=== PATIENT | male | born 1980 | race African-American/Black ===

== ENCOUNTER 2020-06-10 11:56 | Emergency (ER) | payer BC, SELFPAY ==
--- NOTE | ~2020-06-10 | CT_ITS ---
EXAMINATION: CT abdomen pelvis wo con EXAM DATE: 06/10/2020 13:07 INDICATION: Right flank pain. TECHNIQUE: Spiral CT of the abdomen and pelvis was performed without contrast. Axial, coronal and sag ittal images were reviewed. The dose-length product (DLP) for this examination was 1256.65 mGy-cm. The exposure was tailored according to patient size (auto mA exposure control), and iterative reconst ruction (ASIR) was used as additional dose reduction technique. There is no prior study for comparis on. FINDINGS: There is no nephrolithiasis or hydronephrosis. The prostate is unremarkable. The bladder is unremarkable. The liver, spleen, adrenal glands and pancreas are unremarkable. Gallbladder is u nremarkable. No biliary obstruction. There is no retroperitoneal or pelvic lymphadenopathy. Small u mbilical fat-containing hernia. The appendix is normal. The stomach and small bowel are unremarkable. There is expected amount of c olonic stool. No free intraperitoneal gas. The heart is normal in size. There are no pericardial or pleural effusions. The lung bases are unremarkable. The bones are unremarkable. IMPRESSION: 1. No nephrolithiasis, hydronephrosis or acute intra-abdominal findings. Reviewed, dictated and finalized at location A.
--- NOTE | ~2020-06-10 | XR_ITS ---
EXAMINATION: XR abdomen/kub 1V EXAM DATE: 06/10/2020 13:10 INDICATION: Right flank pain. TECHNIQUE: Frontal projection(s) of the abdomen for interpretation. There is no prior study for sujatha angeles. FINDINGS: There is expected amount of colonic stool and gas. No small bowel dilation, nonobstructiv e bowel gas pattern. There are no suspicious calcifications identified. There is no organomegaly suspected. The bones are unremarkable. IMPRESSION: Unremarkable abdomen x-ray exam. Reviewed, dictated and finalized at location A.
[2020-06-10 12:05] VITALS: BP 169/81; PULSE 96; RESP 20; TEMP 36.8; O2SAT 99
[2020-06-10 12:46] LABS: Basophils Percent Auto 0.6 % (0.2-1.2); Eosinophils Percent Auto 0.6 % (0-4.4); Hematocrit 44.2 % (42.0-52.0); Hemoglobin 13.9 g/dL (14.0-18.0); Immature Granulocyte Absolute 0.02 K/mm3 (0.00-0.031); Immature Granulocyte Percent A 0.3 % (0-0.5); Lymphocytes Absolute Auto 2.58 K/mm3 (0.9-3.2); Mean Corpuscular HGB Conc 31.4 g/dl (32-36); Mean Corpuscular Hemoglobin 23.4 pg (26-34); Mean Corpuscular Volume 74.3 fl (80-100); Mean Platelet Volume 9.2 fl (7.4-10.4); Monocytes Absolute Auto 0.4 K/mm3 (0.1-0.6); Monocytes Percent Auto 6.5 % (2.6-8.5); Neutrophils Absolute Auto 3.4 K/mm3 (1.3-6.7); Platelet Count Result 282 k/mm3 (150-375); Red Blood Count 5.95 M/mm3 (4.6-6.20); Red Cell Distribution Width 15.5 % (11.5-14.5); White Blood Count 6.5 K/mm3 (4.5-10.0)
--- NOTE | 2020-06-10 12:54 | ED.BACK ---
HPI - Back Pain/Injury General Chief Complaint: Back Pain/Injury <Sea Vital PA-C - Last Filed: 06/10/20 13:42> Stated Complaint: right flank pain <Sea Vital PA-C - Last Filed: 06/10/20 13:42> Time Seen by Provider: 06/10/20 12:03 <Sea Vital PA-C - Last Filed: 06/10/20 13:42> Source: patient <Sea Vital PA-C - Last Filed: 06/10/20 13:42> Mode of arrival: ambulatory <Sea Vital PA-C - Last Filed: 06/10/20 13:42> Limitations: no limitations <LYNNETTE Wen Last Filed: 06/10/20 13:42> History of Present Illness HPI Narrative: Patient is a 40-year-old male who presents to emergency department for evaluation of right flank pain for the last 2 days noting stabbing intermittent pain that intensified today patient denies similar occurrence in the past has not taken anything for his symptoms has not been seen for this complaint presents per private vehicle in no distress denies any fever chills nausea vomiting or URI symptoms <Sea Vital PA-C - Last Filed: 06/10/20 13:42> Related Data Allergies/Adverse Reactions: Allergies Allergy/AdvReac Type Severity Reaction Status Date / Time No Known Allergies Allergy Verified 06/10/20 12:07 <Sea Vital PA-C - Last Filed: 06/10/20 13:42> Review of Systems Review of Systems: All systems reviewed & are unremarkable except as noted in HPI and below <Sea Vital PA-C - Last Filed: 06/10/20 13:42> [facility] Social History Social History: Social History (Updated 06/10/20 @ 12:55 by Sea Vital PA-C) Smoking status: Never smoker <LYNNETTE Wen Last Filed: 06/10/20 13:42> Exam Narrative: Exam Narrative: GENERAL: Well-appearing, well-nourished, and in no acute distress. HEAD: Normocephalic, atraumatic. EYES: PERRLA and EOMI. ENT: Nares clear, no rhinorrhea or epistaxis. Mucous membranes moist. CHEST: Clear to auscultation. No respiratory distress. No wheezes rales or rhonchi HEART: Regular rate and rhythm. No murmur heard. Normal peripheral pulses. ABDOMEN: Soft, right flank tenderness and right upper quadrant tenderness no deformities noted, nondistended, normal active bowel sounds. EXTREMITIES: Normal range of motion. No edema. SKIN: Warm, dry, no rash. NEURO: No focal deficits. Alert and oriented x3. Cranial nerves II through XII grossly intact PSYCH: Normal mood and affect. <LYNNETTE Wen Last Filed: 06/10/20 13:42> Course Course Emergency Course: Patient in the room at this time aware of case findings treatment plan and diagnosis agreeing to follow-up as directed or to return if symptoms worsen or concerns patient with flank pain of unknown etiology no high risk changes in the blood work or imaging will be discharged home for further evaluation on outpatient basis provided with primary care follow-up <Sea Vital PA-C - Last Filed: 06/10/20 13:42> Vital Signs Vital signs: Vital Signs Temperature 98.3 F 06/10/20 12:05 Pulse Rate 96 06/10/20 12:05 Respiratory Rate 20 06/10/20 12:05 Blood Pressure 169/81 H 06/10/20 12:05 Pulse Oximetry 99 06/10/20 12:05 Temperature 98.3 F 06/10/20 12:05 Pulse Rate 96 06/10/20 12:05 Respiratory Rate 20 06/10/20 12:05 Blood Pressure 169/81 H 06/10/20 12:05 Pulse Oximetry 99 06/10/20 12:05 <LYNNETTE Wen Last Filed: 06/10/20 13:42> Vital Signs Temperature 98.3 F 06/10/20 12:05 Pulse Rate 96 06/10/20 12:05 Respiratory Rate 20 06/10/20 12:05 Blood Pressure 169/81 H 06/10/20 12:05 Pulse Oximetry 99 06/10/20 12:05 Temperature 98.3 F 06/10/20 12:05 Pulse Rate 96 06/10/20 12:05 Respiratory Rate 20 06/10/20 12:05 Blood Pressure 169/81 H 06/10/20 12:05 Pulse Oximetry 99 06/10/20 12:05 <Cassi Piedra MD - Last Filed: 06/10/20 14:13> MDM - Back Pain/Injury MDM Narrative Medical decision making narr
[2020-06-10 12:57] LABS: Add Urine Microscopic? NO; Appearance Urine Clear (Clear); Bilirubin Urine Negative (Negative); Blood Urine Negative (Negative); Color Urine Yellow (Yellow); Glucose Urine UA Negative (Negative); Ketones Urine Negative (Negative); Leukocyte Esterase Ur Negative LEU/UL (Negative); Nitrate Urine Negative (Negative); Protein Urine Negative (Negative); Specific Grav Ur 1.026 (1.001-1.035); Urobilinogen Urine Negative mg/dL (<2.0)
[2020-06-10 12:58] LABS: Anion Gap 12.8 mmol/L (7-16); Blood Urea Nitrogen 19 mg/dL (9-20); Calcium 8.6 mg/dL (8.4-10.2); Carbon Dioxide 24 mmol/L (22-30); Chloride 105 mmol/L (98-107); Estimated CRCL calculation 105 ml/min; Estimated Glomerular Filt Rate > 60; Glucose 117 mg/dL (75-110); Potassium 3.8 mmol/L (3.4-5.0); Sodium 138 mmol/L (137-145)
[2020-06-10] MEDS: FAMOTIDINE 20 MG/2 ML VIAL IV PUSH (13:15)
[2020-06-10] MEDS: SODIUM CHLORIDE 0.9% IV 1,000 ML 999 ML IV CONT (13:15)
[2020-06-10 13:18] LABS: Alanine Aminotransferase 44 U/L (4-50); Albumin Level 4.5 g/dL (3.5-5.1); Alkaline Phosphatase 76 U/L (38-126); Aspartate Amino Transferase 41 U/L (17-59); Bilirubin,Total 0.5 mg/dL (0.2-1.3); Lipase 172 U/L (23-300)
[2020-06-10 14:10] VITALS: BP 158/68; PULSE 72; RESP 12; O2SAT 99
== END 2020-06-10 14:20 | disposition home or self-care (01) ==
PROVIDERS: Emergency Medicine Emergency Medical Services; Emergency Provider Emergency Medicine
DX: R10.9 Unspecified abdominal pain (principal)
CPT/HCPCS: 36415; 74018; 74176; 80048; 80076; 81003; 83690; 85025; 96361; 96374; 96375; 99284; J0131; J7030

== ENCOUNTER 2023-04-22 18:04 | Emergency (ER) | payer BC, SELFPAY ==
--- NOTE | ~2023-04-22 | XR_ITS ---
Clinical Indication: Chest pain PA and lateral views of the chest: Comparison: None Findings: The lungs are clear, without evidence of focal consolidation or pleural effusion. Cardiome diastinal silhouette is within normal limits. Bones and soft tissues are unremarkable. Impression: Normal chest. Reviewed, dictated and finalized at location . Impression: Normal chest.
--- NOTE | 2023-04-22 18:11 | ECG_ITS ---
Measurements Intervals [place] Rate: 105 P: 40 WV: 143 QRS: 46 QRSD: 93 T: 17 QT: 328 QTc: 434 Interpretive Statements SINUS TACHYCARDIA NONSPECIFIC T-WAVE ABNORMALITY ABNORMAL ECG NO PREVIOUS ECG AVAILABLE FOR COMPARISON Electronically Signed On 04-23-2023 10:19:11 CDT by Emery Queen M.D.
[2023-04-22 18:12] VITALS: BP 177/88; PULSE 118; RESP 24; TEMP 37; O2SAT 99
[2023-04-22 18:14] VITALS: PULSE 118; RESP 23; O2SAT 100
[2023-04-22 18:15] VITALS: PULSE 106; RESP 21; O2SAT 100
[2023-04-22 18:16] VITALS: PULSE 116; O2SAT 100
[2023-04-22] MEDS: ASPIRIN 81 MG CHEWABLE TABLET 324 MG PO (18:27)
[2023-04-22 18:29] LABS: Basophils Absolute Auto 0.1 K/mm3 (0.0-0.1); Basophils Percent Auto 0.8 % (0.2-1.2); Eosinophils Absolute Auto 0.3 K/mm3 (0-0.3); Eosinophils Percent Auto 2.5 % (0-4.4); Hematocrit 42.9 % (42.0-52.0); Hemoglobin 13.4 g/dL (14.0-18.0); Immature Granulocyte Absolute 0.08 K/mm3 (0.00-0.031); Immature Granulocyte Percent A 0.8 % (0-0.5); Lymphocytes Percent Auto 42.2 % (18.3-44.2); Mean Corpuscular HGB Conc 31.2 g/dl (32-36); Mean Corpuscular Hemoglobin 23.5 pg (26-34); Mean Corpuscular Volume 75.1 fl (80-100); Mean Platelet Volume 8.9 fl (7.4-10.4); Monocytes Absolute Auto 0.8 K/mm3 (0.1-0.6); Monocytes Percent Auto 7.8 % (2.6-8.5); Neutrophils Absolute Auto 4.6 K/mm3 (1.3-6.7); Neutrophils Percent Auto 45.9 % (45.5-73.1); Platelet Count Result 287 k/mm3 (150-375); Red Blood Count 5.71 M/mm3 (4.6-6.20); Red Cell Distribution Width 15.9 % (11.5-14.5)
--- NOTE | 2023-04-22 18:32 | ED.CHESTPAIN ---
HPI - Chest Pain General Chief Complaint: Chest Pain Stated Complaint: L sided chest pain to arm Time Seen by Provider: 04/22/23 18:19 History of Present Illness HPI narrative: Patient is a 43-year-old male with a history of hypertension presenting with chest pain. Patient states that he was driving when he developed pain under his left armpit radiating down his left arm. States that he felt short of breath. States that the episode lasted for 30 seconds to a minute and then resolved. States that he has had similar pain in the past but usually not so severe. Currently, he denies any complaints or symptoms. He denies lightheadedness or palpitations. No headaches, fevers, abdominal pain, nausea or vomiting, diarrhea, dysuria, leg swelling. Related Data Allergies Allergy/AdvReac Type Severity Reaction Status Date / Time No Known Allergies Allergy Verified 06/10/20 12:07 Review of Systems Review of Systems: All systems reviewed & are unremarkable except as noted in HPI and below PMFSH Social History Social History Smoking status: Never smoker Exam Narrative: GENERAL: Well-appearing, well-nourished, and in no acute distress. Pleasant and cooperative HEAD: Normocephalic, atraumatic. EYES: PERRLA and EOMI. ENT: Nares clear, no rhinorrhea or epistaxis. Mucous membranes moist. NECK: Supple. CHEST: Clear to auscultation. No respiratory distress. HEART: Regular rate and rhythm. No murmur heard. Normal peripheral pulses. ABDOMEN: Soft, nontender, nondistended EXTREMITIES: Normal range of motion. No edema. SKIN: Warm, dry, no rash. NEURO: No focal deficits. Alert and oriented x3. PSYCH: Normal mood and affect. Course Vital Signs Vital signs: Vital Signs Temperature 98.6 F 04/22/23 18:12 Pulse Rate 118 H 04/22/23 18:12 Respiratory Rate 24 H 04/22/23 18:12 Blood Pressure 177/88 H 04/22/23 18:12 Pulse Oximetry 99 04/22/23 18:12 Oxygen Delivery Room Air 04/22/23 18:12 Temperature 98.6 F 04/22/23 18:12 Pulse Rate 89 04/22/23 19:02 Respiratory Rate 18 04/22/23 19:02 Blood Pressure 137/97 H 04/22/23 19:02 Pulse Oximetry 100 04/22/23 19:02 Oxygen Delivery Room Air 04/22/23 18:16 MDM - Chest Pain MDM Narrative Medical decision making narrative: Patient is a 43-year-old male presenting with an episode of chest pain and shortness of breath. On arrival, patient was hypertensive in the 170s over 80s. He was tachycardic as well. His vitals improved by the time I evaluated him. He is no longer tachycardic and his blood pressure is much improved in the 130s over 90s. EKG per my interpretation shows sinus tachycardia, normal axis, nonspecific T wave changes, no ST elevations or depressions. Chest x-ray shows no acute abnormalities. Blood work is unremarkable. Troponins are undetectable x2. Patient denies any recurrence of his chest pain. On my evaluation, the patient states that he feels well. Discussed the reassuring work-up. Advised that he follow-up closely with his PCP. Appropriate return precautions given. Patient voiced understanding and is agreeable with plan. Discharged in stable condition. Differential Diagnosis Differential diagnosis: Likely pneumothorax, atypical chest pain, st elevation myocardial infarction, costochondritis and chest pain Medical Records Data Attestation: I reviewed the patient's medical records. Lab Data Attestation: I reviewed the patient's lab results. 04/22/23 18:24 04/22/23 18:24 Labs: Lab Results 04/22/23 04/22/23 Range/Units 18:24 21:10 WBC 10.0 (4.5-10.0) K/mm3 RBC 5.71 (4.6-6.20) M/mm3 Hgb 13.4 L (14.0-18.0) g/dL Hct 42.9 (42.0-52.0) % MCV 75.1 L (80-100) fl MCH 23.5 L (26-34) pg MCHC 31.2 L (32-36) g/dl RDW 15.9 H (11.5-14.5) % Plt Count 287 (150-375) k/mm3 MPV 8.9 (7.4-10.4) fl Immature Gran % (
[2023-04-22 18:45] LABS: INR 0.9; Prothrombin Time 13.1 Seconds (11.1-14.7)
[2023-04-22 18:46] LABS: Alanine Aminotransferase 42 U/L (6-50); Albumin Level 5.1 g/dL (3.5-5.1); Alkaline Phosphatase 59 U/L (38-126); Anion Gap 9 mmol/L (8-16); Aspartate Amino Transferase 38 U/L (17-59); Bilirubin,Total 0.5 mg/dL (0.2-1.3); Blood Urea Nitrogen 22 mg/dL (9-20); Calcium 8.9 mg/dL (8.4-10.2); Carbon Dioxide 28 mmol/L (22-30); Chloride 103 mmol/L (98-107); Estimated CRCL calculation 110 ml/min; Estimated Glomerular Filt Rate > 60; Glucose 104 mg/dL (65-110); Lipase 154 U/L (23-300); Partial Thromboplastin Time 26.2 SECONDS (22.3-36.8); Potassium 3.6 mmol/L (3.4-5.0); Sodium 140 mmol/L (137-145)
[2023-04-22 18:57] LABS: Troponin I < 0.012 ng/mL (0.000-0.034)
[2023-04-22 19:02] VITALS: BP 137/97; PULSE 89; RESP 18; O2SAT 100
--- NOTE | 2023-04-22 19:15 | PC.NURSE ---
This RN assumed care of patient.
[2023-04-22] MEDS: SODIUM CHLORIDE 0.9% IV 1,000 ML 999 ML IV CONT (19:33)
[2023-04-22 21:37] LABS: Troponin I < 0.012 ng/mL (0.000-0.034)
== END 2023-04-22 21:56 | disposition home or self-care (01) ==
PROVIDERS: Emergency Medicine; Emergency Provider Emergency Medicine
DX: R07.89 Other chest pain (principal)
CPT/HCPCS: 36415; 71046; 80053; 83690; 84484; 85025; 85610; 85730; 93005; 96360; 99284; A9270; J7030

== ENCOUNTER 2023-05-17 09:19 | Outpatient (CLI) | payer BC, SELFPAY ==
--- NOTE | ~2023-05-17 | US_ITS ---
Limited Abdominal Sonogram: Real-time sonographic imaging of the right upper quadrant was performed. Clinical History: Elevated liver enzymes Findings: The liver appears mildly heterogeneous, with no evidence of mass lesion or bile duct dilat ation. Main portal vein demonstrates normal direction of flow. The gallbladder is well distended, and appears normal with no evidence of gallstone or wall thickening. The common bile duct measures 6 mm. The pancreas is obscured by bowel gas shadowing. Impression: Possible fatty infiltration of liver or other chronic liver disease. Correlate clinically. Reviewed, dictated and finalized at location M. Impression: Possible fatty infiltration of liver or other chronic liver disease. Correlate clinically.
== END 2023-05-17 09:20 | disposition home or self-care (01) ==
PROVIDERS: PCP Emergency Medicine; Visit Provider Emergency Medicine
DX: R74.8 Abnormal levels of other serum enzymes (principal)
CPT/HCPCS: 76705